=== PATIENT | female | born 1995 | race African-American/Black ===

== ENCOUNTER 2017-07-02 21:01 | Emergency (ER) | payer OTHER ==
[~2017-07-02] VITALS: Ht 160 cm; Wt 69.5 kg
[2017-07-02 21:03] VITALS: BP 132/72; PULSE 93; RESP 15; TEMP 99.9; O2SAT 97
--- NOTE | 2017-07-02 21:41 | PD ---
Physical Exam Time Seen by Provider: 21:38 Narrative 22yo F c/o abd vag dc since Saturday. Denies odor. +itching occasionally. Denies dysuria, abd, pelvic pain. Unknown exposure to STD's. LMP June. Patient seen in triage. VS reviewed. Patient awaiting bed placement. Data Data Last Documented VS Vital Signs Date Time Temp Pulse Resp B/P (MAP) Pulse Ox O2 Delivery O2 Flow Rate FiO2 07/02/17 21:03 99.9 93 15 132/72 (92) 97 Room Air MDM Supervised Visit with ANGELA: Jacqui Alfaro Jul 02, 2017 21:41
[2017-07-02 22:14] LABS: BLOOD, URINE NEG (NEG); COMMENT (UR) CULT NOT INDICATED; CULTURE IF INDICATED CULT NOT INDICATED; GLUCOSE,URINE NEG (NEG); KETONE, URINE NEG (NEG); NITRITE,URINE NEG (NEG); SQUAMOUS EPITHELIAL CELL URINE 5 /hpf (0-5); URINE COLOR YELLOW (YELLW/STRAW)
--- NOTE | 2017-07-02 22:33 | PD ---
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 Symptoms started 3-4 days ago. The vaginal discharge is white, mildly itchy. Denies pain, foul odor, dysuria, flank pain, nausea or vomiting, fevers or chills or myalgias. She reports that she has had one sexual partner over the past 3 weeks. Denies recent antibiotic use. No other complaints at this time. PFSH Past Medical History Diminished Hearing: No Immunizations Current: No Influenza Vaccination: No ?: Not Social History Alcohol Use: Yes Tobacco Use: No Substance Use: No Allergies-Medications (Allergen,Severity, Reaction): Coded Allergies: No Known Allergies (Unverified , 07/02/17) Reported Meds & Prescriptions Reported Meds & Active Scripts Active No Active Prescriptions or Reported Medications Review of Systems Except as stated in HPI: all other systems reviewed are Neg Physical Exam Narrative GENERAL: Well-developed well-nourished female in no acute distress SKIN: Warm and dry. HEAD: Atraumatic. Normocephalic. EYES: Pupils equal and round. No scleral icterus. No injection or drainage. ENT: No nasal bleeding or discharge. Mucous membranes pink and moist. NECK: Trachea midline. No JVD. CARDIOVASCULAR: Regular rate and rhythm. No murmur appreciated. RESPIRATORY: No accessory muscle use. Clear to auscultation. Breath sounds equal bilaterally. GASTROINTESTINAL: Abdomen soft, non-tender, nondistended. Hepatic and splenic margins not palpable. Pelvic examination performed in the presence of a female nurse: Thick white vaginal discharge is noted. There is no cervical motion tenderness or adnexal tenderness. MUSCULOSKELETAL: No obvious deformities. No clubbing. No cyanosis. No edema. NEUROLOGICAL: Awake and alert. No obvious cranial nerve deficits. Motor grossly within normal limits. Normal speech. Data Data Last Documented VS Vital Signs Date Time Temp Pulse Resp B/P (MAP) Pulse Ox O2 Delivery O2 Flow Rate FiO2 07/02/17 21:03 99.9 93 15 132/72 (92) 97 Room Air Orders Orders Urinalysis - C+S If Indicated (07/02/17 21:47) Ed Urine Pregnancytest Poc (07/02/17 21:47) Gc And Chlamydia Pcr (07/02/17 22:27) Wet Prep Profile (07/02/17 22:27) Azithromycin Powd Pack (Zithromax Powd P (07/02/17 23:00) Ceftriaxone Inj (Rocephin Inj) (07/02/17 23:00) Lidocaine 1% Inj (50 Ml) (Xylocaine 1% I (07/02/17 23:00) Fluconazole (Diflucan) (07/02/17 23:45) Labs Laboratory Tests Test 07/02/17 21:54 07/02/17 22:56 Urine Color YELLOW Urine Turbidity CLOUDY Urine pH 7.0 Urine Specific Addy 1.018 Urine Protein NEG mg/dL Urine Glucose (UA) NEG mg/dL Urine Ketones NEG mg/dL Urine Occult Blood NEG Urine Nitrite NEG Urine Bilirubin NEG Urine Urobilinogen 2.0 MG/DL Urine Leukocyte Esterase TRACE Urine RBC 9 /hpf Urine WBC LESS THAN 1 /hpf Urine Squamous Epithelial Cells 5 /hpf Microscopic Urinalysis Comment CULT NOT INDICATED Clue Cells (Wet Prep) NONE SEEN Vaginal Trichomonas (Wet Prep) NONE SEEN Vaginal Yeast (Wet Prep) NONE SEEN MDM Medical Decision Making Medical Screen Exam Complete: Yes Emergency Medical Condition: Yes Medical Record Reviewed: Yes Interpretation(s) Urinalysis trace leukocytes, 9 RBCs Urine test negative Differential Diagnosis Bacterial vaginosis, vaginitis, pelvic inflammatory disease, trichomoniasis, cervicitis Narrative Course This is a 22-year-old female whose been having white mildly itchy vaginal discharge for 4 days. She has had one new sexual partner over the past 3 weeks. Plan is for wet prep, GC probe, likely empirically treat for chlamydia and gonorrhea pending PCR results. The patient's wet prep is negative however her examination is most consistent with vaginitis with a fungal etiology. Therefore the patient was given a dose of fluconazole prior to discharge. Diagnosis Primary Impression: Vaginal discharge Additional Instructions: Follow-up with primary care as needed and return for any emergent medical conditions. Med/Other Pt SpecificInfo: No Change to Meds Scripts No Active Prescriptions or Reported Meds Disposition: DISCHARGE HOME Condition: Stable Robe Johnson Jul 02, 2017 22:33
[2017-07-02] MEDS ORDERED: LIDOCAINE HCL 1% 50 ML VIAL IM ONE (23:00)
[2017-07-02] MEDS ORDERED: cefTRIAXone 250 MG VIAL IM ONE (23:00)
[2017-07-02] MEDS ORDERED: AZITHROMYCIN PWD FOR SUSP 1 GM PACKET PO ONE (23:00)
[2017-07-02] MEDS ORDERED: FLUCONAZOLE 100 MG TAB PO ONE (23:45)
[2017-07-03 01:18] LABS: CHLAMYDIA PCR NOT DETECTED (NOT DETECT); NEISSERIA PCR NOT DETECTED (NOT DETECT)
== END 2017-07-03 00:06 | disposition home or self-care (01) ==
LOC: NEPD 21:01
DX: N89.8 Other specified noninflammatory disorders of vagina (principal)
CPT/HCPCS: 81001; 84703; 87210; 87491; 87591; 96372; 99284; J0696